=== PATIENT | female | born 1990 | race Caucasian/White ===

== ENCOUNTER 2024-03-28 23:53 | Emergency (ER) | payer SELFPAY ==
[2024-03-29] MEDS ORDERED: Morphine 2 MG/ML VIAL ONE (00:06)
== END 2024-03-29 00:40 | disposition home or self-care (01) ==
LOC: BURERS 23:53
DX: S93.602A Unspecified sprain of left foot, initial encounter (principal); W10.8XXA Fall (on) (from) other stairs and steps, initial encounter
CPT/HCPCS: 96372; 99283; J2272